=== PATIENT | male | born 1995 | race Caucasian/White ===

== ENCOUNTER 2021-05-29 11:23 | Emergency (ER) | payer OTHER ==
[~2021-05-29] VITALS: Ht 175.3 cm; Wt 81.8 kg
[2021-05-29 12:22] VITALS: BP 135/87
[2021-05-29] MEDS ORDERED: ALBUTEROL SULFATE 2.5 MG/3 ML NEBU. NEB ONE (12:45)
[2021-05-29] MEDS ORDERED: predniSONE 20 MG TABLET PO ONE (12:45)
[2021-05-29] MEDS ORDERED: ALBUTEROL SULFATE 8GM INHALER. ONE (13:08)
[2021-05-29] MEDS ORDERED: ALBUTEROL SULFATE 8GM INHALER. INH ONE (13:15)
--- NOTE | 2021-05-29 13:35 | PHYS DOC ---
Past History Past Surgical History: No Surgical History Alcohol Use: None General Adult EDM: Chief Complaint: COUGH HPI: HPI: Patient is a 25-year-old male who presents with cough, chills patient states that his symptoms started last week. Patient states that he traveled last week to see his girlfriend's family in [place]. Patient is currently in the and was supposed to return back to [place] today but unable to fly due to symptoms. Patient reports that he has pain in his chest with coughing and taking a deep breath. Reports shortness of breath with exertion only. Patient reports he is been fully vaccinated for COVID-19. Denies medical history. Review of Systems: Review of Systems: Constitutional: Denies fever or chills Eyes: Denies change in visual acuity HENT: Denies nasal congestion or sore throat Respiratory: Denies cough or shortness of breath Cardiovascular: Denies chest pain or edema GI: Denies abdominal pain, nausea, vomiting, bloody stools or diarrhea : Denies dysuria Musculoskeletal: Denies back pain or joint pain Integument: Denies rash Neurologic: Denies headache, focal weakness or sensory changes Endocrine: Denies polyuria or polydipsia Lymphatic: Denies swollen glands Psychiatric: Denies depression or anxiety Current Medications: Current Meds: Current Medications Medications (Trade) Dose Ordered Sig/Rodrigo Start Time Stop Time Status Last Admin Dose Admin Albuterol Sulfate (Ventolin Hfa Inhaler) 1 puff 1X ONCE 05/29/21 13:15 05/29/21 13:16 DC Albuterol Sulfate (Ventolin) 2.5 mg 1X ONCE 05/29/21 12:45 05/29/21 12:46 DC 05/29/21 12:52 2.5 MG Prednisone (Prednisone) 60 mg 1X ONCE 05/29/21 12:45 05/29/21 12:46 DC Allergies: Allergies: Allergies Coded Allergies Type Severity Reaction Last Updated Verified No Known Drug Allergies 05/29/21 No Physical Exam: PE: Constitutional: Well developed, well nourished, no acute distress, non-toxic appearance. [] HENT: Normocephalic, atraumatic, bilateral external ears normal, oropharynx moist, no oral exudates, nose normal. [] Eyes: PERRLA, EOMI, conjunctiva normal, no discharge. [] Neck: Normal range of motion, no tenderness, supple, no stridor. [] Cardiovascular:Heart rate regular rhythm, no murmur [] Lungs & Thorax: Bilateral breath sounds clear to auscultation [] Abdomen: Bowel sounds normal, soft, no tenderness, no masses, no pulsatile masses. [] Skin: Warm, dry, no erythema, no rash. [] Back: No tenderness, no CVA tenderness. [] Extremities: No tenderness, no cyanosis, no clubbing, ROM intact, no edema. [] Neurologic: Alert and oriented X 3, normal motor function, normal sensory function, no focal deficits noted. [] Psychologic: Affect normal, judgement normal, mood normal. [] Current Patient Data: Vital Signs: Vital Signs Date Time Temp Pulse Resp B/P (MAP) Pulse Ox O2 Delivery O2 Flow Rate FiO2 05/29/21 12:55 99 Room Air 05/29/21 12:22 99.1 78 18 135/87 (103) EKG: EKG: [] Radiology/Procedures: Radiology/Procedures: []EXAMINATION: Chest radiograph. VIEWS: 1 COMPARISON: None INDICATION:25 years, Male, cough. FINDINGS: Normal cardiomediastinal silhouette. Ill-defined airspace opacities in the left perihilar lung. No pleural effusion or pneumothorax. No acute osseous process. IMPRESSION: Left perihilar pneumonia. Electronically signed by: Rupa Cordova MD (05/29/2021 1:36 PM) [id number] Heart Score: C/O Chest Pain: No Risk Factors: Risk Factors: DM, Current or recent (<one month) smoker, HTN, HLP, family history of CAD, obesity. Risk Scores: Score 0 - 3: 2.5% MACE over next 6 weeks - Discharge Home Score 4 - 6: 20.3% MACE over next 6 weeks - Admit for Clinical Observation Score 7 - 10: 72.7% MACE over next 6 weeks - Early Invasive Strategies Course & Med Decision Making: Course & Med Decision Making Pertinent Labs and Imaging studies reviewed. (See chart for details) [] 25-year-old male presents with cough, chills that started last week. Patient is currently been traveling while visiting family in [place] for the holidays. Work-up in ER consisted of chest x-ray, DuoNeb, albuterol inhaler, prednisone. Patient was tested for Covid. Advised patient he would not receive results for 24 to 48 hours. Discussed quarantining. Ibuprofen for fevers and chills. [id number] Mucinex to help with symptoms. Patient reports he understands discharge instructions and return precautions. Patient is hemodyna mically stable upon disposition. Dragon Disclaimer: Anurag Disclaimer: This electronic medical record was generated, in whole or in part, using a voice recognition dictation system. Departure Departure: Impression: Primary Impression: Pneumonia Qualified Codes: J18.9 - Pneumonia, unspecified organism Additional Impression: Person under investigation for COVID-19 Disposition: HOME / SELF CARE / HOMELESS Condition: STABLE Referrals: PCP,NO (PCP) Patient Instructions: Cough, Adult, [id number] Additional Instructions: You were seen in the emergency room for cough, chills. You were tested for Covid. You were given steroids in the ER along with a breathing treatment and inhaler to go home with. I am also sending you home with prescription for jerrod roids. Ibuprofen and Tylenol at home for fever and chills. You can also take Mucinex [id number] to help with symptoms. Will take 24 to 40 hours to receive adults. Return to the emergency room if you have an increase in shortness of breath, uncontrolled nausea and vomiting, pain. EMERGENCY DEPARTMENT GENERAL DISCHARGE INSTRUCTIONS Thank you for coming to [facility] (ED) today and trusting us with you care. We trust that you had a positivie experience in our Emergency Department. If you wish to speak to the department management, you may call the director at [phone]. YOUR FOLLOW UP INSTRUCTIONS ARE FOLLOWS: 1. Do you have a private Doctor? If you do not have a private doctor, please ask for a resource list of physicians or clinics that may be able to assist you with follow up care. 2. The Emergency Physician has interpreted your x-rays. The X-Ray specialist will also review them. If there is a change in the findings, you will be notified in 48 hours when at all possible. 3. A lab test or culture has been done, your results will be reviewed and you will be notified if you need a change in treatment. ADDITIONAL INSTRUCTIONS AND INFORMATION: 1. Your care today has been supervised by a physician who is specially trained in emergency care. Many problems require more than one evaluation for a complete diagnosis and treatment. We recommend that you schedule your follow up appointment as recommended to ensure complete treatment of you illness or injury. If you are unable to obtain follow up care and continue to have a problem, or if your condition worsens, we recommend that you return to the ED. 2. We are not able to safely determine your condition over the phone nor are we able to give sound medical advice over the phone. For these safety reasons, if you call for medical advice we will ask you to come to the ED for further evaluation. 3. If you have any questions regarding these discharge instructions please call the ED at [phone]. SAFETY INFORMATION: In the interest of safety, wellness, and injury prevention; we encourage you to wear your sealbelt, if you smoke; quite smoking, and we encourage family to use a protective helmet for bicycling and other sporting events that present an increased risk for head injury. IF YOUR SYMPTOMS WORSEN OR NEW SYMPTOMS DEVELOP, OR YOU HAVE CONCERNS ABOUT YOUR CONDITION; OR IF YOUR CONDITION WORSENS WHILE YOU ARE WAITING FOR YOUR FOLLOW UP APPOINTMENT; EITHER CONTACT YOUR PRIMARY CARE DOCTOR, THE PHYSICIAN WHOSE NAME AND NUMBER YOU WERE GIVEN, OR RETURN TO THE ED IMMEDIATELY. Scripts Prednisone (PREDNISONE) 20 Mg Tablet 3 TAB PO DAILY for allergies for 5 Days, #15 TAB Prov: JOHNIE ACOSTA APRN 05/29/21 Azithromycin (AZITHROMYCIN TABLET) 250 Mg Tablet 1 PKG PO UD for pneumonia for 5 Days, #6 TAB 0 Refills 2 the first day followed by 1 for days 2-5 Prov: JOHNIE ACOSTA APRN 05/29/21 JOHNIE CAOSTA APRN May 29, 2021 13:35
--- NOTE | 2021-05-29 13:38 | RAD ---
EXAMINATION: Chest radiograph. VIEWS: 1 COMPARISON: None INDICATION:25 years, Male, cough. FINDINGS: Normal cardiomediastinal silhouette. Ill-defined airspace opacities in the left perihilar lung. No pl eural effusion or pneumothorax. No acute osseous process. IMPRESSION: Left perihilar pneumonia. Electronically signed by: Rupa Cordova MD (05/29/2021 1:36 PM) [id number]
[2021-05-29] MEDS ORDERED: PRED20TA PO (13:52)
[2021-05-29] MEDS ORDERED: AZIT250T6 PO (13:52)
== END 2021-05-29 14:26 | disposition home or self-care (01) ==
LOC: ER 12:25
DX: J18.9 Pneumonia, unspecified organism (principal); Z20.822 Contact with and (suspected) exposure to COVID-19
CPT/HCPCS: 71045; 94640; 99284; C9803; J7512; J7613; U0003; 94664